=== PATIENT | female | born 1990 | race Hispanic/Latino ===

== ENCOUNTER 2023-02-20 12:27 | Emergency (ER) | payer OTHER ==
[~2023-02-20] VITALS: Ht 154.9 cm; Wt 79.4 kg
[2023-02-20] MEDS ORDERED: KETOROLAC 30MG VIAL (30MG/ML) IVP ONE (14:30)
[2023-02-20 14:38] LABS: BASOPHILS # (AUTO) 0.03 K/uL (0.00-0.20); BASOPHILS % (AUTO) 0.4 % (0.0-5.0); EOSINOPHILS # (AUTO) 0.15 K/uL (0.00-0.70); HEMATOCRIT 39.1 % (36-48); IMMATURE GRANULOCYTE ABSOLUTE 0.04 K/uL (0-1); LYMPHOCYTES # (AUTO) 2.8 K/uL (1.0-4.8); LYMPHOCYTES % (AUTO) 37.9 % (21.0-51.0); MEAN CORPUSCULAR HEMOGLOBIN 29.6 pg (27.0-33.0); MEAN CORPUSCULAR VOLUME 84.4 fL (79-99); MONOCYTES # (AUTO) 0.4 K/uL (0.1-1.0); MONOCYTES % (AUTO) 4.7 % (3.0-13.0); NEUTROPHILS % (AUTO) 54.5 % (40.0-77.0); PLATELET COUNT (AUTO) 192 K/uL (130-400); RED BLOOD CELL COUNT(AUTO) 4.63 MIL/uL (4.00-5.50); RED CELL DISTRIBUTION WIDTH 11.9 % (11.0-15.5); WHITE BLOOD COUNT (AUTO) 7.4 K/uL (4.8-10.8)
[2023-02-20 14:46] LABS: CREATININE 0.6 mg/dL (0.5-1.5); POTASSIUM 3.8 mmol/L (3.5-5.1)
[2023-02-20 14:50] LABS: ALBUMIN 3.7 g/dL (3.5-5.0); TOTAL PROTEIN, SERUM 8.5 g/dL (6.0-8.3)
[2023-02-20] MEDS ORDERED: IBUP-2077 PO (16:36)
[2023-02-20 16:55] VITALS: BP 105/70; PULSE 76; RESP 18; O2SAT 98
== END 2023-02-20 17:02 | disposition home or self-care (01) ==
LOC: EDH 12:27
DX: R59.0 Localized enlarged lymph nodes (principal); Z98.890 Other specified postprocedural states
CPT/HCPCS: 99285; 96374; 80053; 85025; 87880; 36415; 76536; J1885

== ENCOUNTER 2025-03-14 12:28 | Emergency (ER) | payer BC ==
[~2025-03-14] VITALS: Ht 154.9 cm; Wt 64.9 kg
[~2025-03-14 12:28] MED LIST: IBUP-2077 PO
[2025-03-14 13:15] LABS: IMMATURE GRANULOCYTE ABSOLUTE 0.02 K/uL (0-1); NUCLEATED RED BLOOD CELLS 0.0 % (0.0-0.19); PLATELET COUNT (AUTO) 174 K/uL (130-400); RED BLOOD CELL COUNT(AUTO) 4.68 MIL/uL (4.00-5.50); RED CELL DISTRIBUTION WIDTH 12.0 % (11.0-15.5); WHITE BLOOD COUNT (AUTO) 5.3 K/uL (4.8-10.8)
[2025-03-14 13:27] LABS: CREATININE 0.7 mg/dL (0.5-1.0); GLOMERULAR FILTR. RATE CALC 116.0 mL/min (>90); GLUCOSE,RANDOM 111.0 mg/dL (70-105); SODIUM SERUM 140.0 mmol/L (136-145); UREA NITROGEN, BLOOD 9.0 mg/dL (7-18)
[2025-03-14 13:32] LABS: ASPARTATE AMINOTRANSFERASE 13.0 U/L (10-37); TOTAL PROTEIN, SERUM 7.6 g/dL (6.0-8.3)
[2025-03-14] MEDS ORDERED: LIDOCAINE HCL 2% VISCOUS 15 ML UDCUP ONE (13:49)
[2025-03-14] MEDS ORDERED: MAG/ALUM/SIMETH 30 ML UDCUP ONE (13:49)
[2025-03-14] MEDS: MAG/ALUM/SIMETH 30 ML UDCUP PO ONE (13:50)
[2025-03-14] MEDS: DICYCLOMINE HCL 10 MG/5 ML ML PO ONE (13:50)
[2025-03-14] MEDS: LIDOCAINE HCL 2% VISCOUS 15 ML UDCUP PO ONE (13:50)
[2025-03-14] MEDS ORDERED: DICYCLOMINE HCL 10 MG/5 ML ML PO ONE (13:50)
[2025-03-14 13:54] VITALS: BP 116/74; PULSE 82; RESP 16; TEMP 98.6; O2SAT 98
--- NOTE | 2025-03-14 14:43 | ERN ---
General Chief Complaint: Abdominal Pain Stated Complaint: ABDOMINAL PAIN, BACK PAIN Time Seen by MD: 12:30 Time Seen by Midlevel: 12:30 Source: patient History of Present Illness Initial Comments Patient is a 34-year-old female presenting to the emergency department for evaluation of midepigastric abdominal pain that started last night. She does report being on 12.5 mg. Previously on 10 mg but increase your dose the proximally three weeks ago he believes this may be a side effect medication. Allergies: Coded Allergies: No Known Allergies (Unverified Allergy, Unknown, 02/20/23) Home Meds Active Scripts Ibuprofen (Ibuprofen 800 mg Tab) 800 Mg Tab, 800 MG PO Q6H PRN for PAIN, #30 TAB Prov:J CARLOS FALK 02/20/23 Past Medical History Past Medical History: No Pertinent History Past Surgical History: Other, Surgical History Other: TUMMY TUCK, BREAST AUGMENTATION ROS Dictation CONSTITUTIONAL: Negative except for HPI HEAD/FACE: Negative except for HPI EENT: Negative except for HPI RESPIRATORY: Negative except for HPI GASTROINTESTINAL/ABDOMINAL: Negative except for HPI GENITOURINARY: Negative except for HPI MUSCULOSKELETAL: Negative except for HPI INTEGUMENTARY: Negative except for HPI NEUROLOGICAL/PSYCH: Negative except for HPI HEMATOLOGIC/LYMPHATIC: Negative except for HPI All Systems Negative, Except as noted above. 13 point review of systems assessed and all negative except for above. Physical Exam Physical Exam Dictation Vital Signs reviewed General Appearance: Alert, oriented x 3, no acute distress, well developed, nourished. Head and Face: non-traumatic. Eyes: PERRL, pink conjunctivas, eyelid no trauma, anterior chamber with arcus senilis. Ears: Pinnas intact and no signs of trauma or erythema ear canals clear and no discharge TM no erythema Nose: No discharge, no bleeding. Oropharynx: Mouth normal, tongue pink, pharynx clear,no erythema, tonsils no exudates, no abscesses noted, mucous membrane moist Neck: Supple, non-tender, no thyromegaly, no masses, no JVD, no bruits Breast:Deferred Chest:No tenderness, no crepitus, no paradoxical movement, no retractions Lungs:Clear, well-ventilated, symmetric, no rales, no wheezing, no rhonchi, no stridor, good breath sounds bilaterally Heart: Regular rate, regular rhythm, no murmur, no gallops Vascular: no peripheral edema, Abdomen: Soft, positive bowel sounds, nondistended, no guarding, nontender, no rebound, no masses no hepatomegaly, no splenomegaly, no Chang's sign, no hernias. Rectal: Deferred Genital: Deferred Neurological: Normal speech, motor function intact, sensory function intact Musculoskeletal: Neck nontender, full range of motion, back nontender, full range of motion, Extremities: nontender, full range of motion Skin: Color pink, dry, no turgor, no rash, no lacerations, no abrasions, no contusions. Lymphatic: Deferred Results Laboratory and Microbiology Lab and Micro Result Laboratory Tests Test 03/14/25 13:09 White Blood Count 5.3 K/uL (4.8-10.8) Red Blood Count 4.68 MIL/uL (4.00-5.50) Hemoglobin 13.9 g/dL (12.0-16.0) Hematocrit 39.9 % (36-48) Mean Corpuscular Volume 85.3 fL (79-99) Mean Corpuscular Hemoglobin 29.7 pg (27.0-33.0) Mean Corpuscular Hemoglobin Concent 34.8 g/dL (32.0-36.0) Red Cell Distribution Width 12.0 % (11.0-15.5) Platelet Count 174 K/uL (130-400) Mean Platelet Volume 10.7 fL (7.5-10.5) H Immature Granulocyte % (Auto) 0.4 % (0-1) Neutrophils (%) (Auto) 52.2 % (40.0-77.0) Lymphocytes (%) (Auto) 40.1 % (21.0-51.0) Monocytes (%) (Auto) 4.3 % (3.0-13.0) Eosinophils (%) (Auto) 2.6 % (0.0-8.0) Basophils (%) (Auto) 0.4 % (0.0-5.0) Neutrophils # (Auto) 2.8 K/uL (1.8-7.7) Lymphocytes # (Auto) 2.1 K/uL (1.0-4.8) Monocytes # (Auto) 0.2 K/uL (0.1-1.0) Eosinophils # (Auto) 0.14 K/uL (0.00-0.70) Basophils # (Auto) 0.02 K/uL (0.00-0.20) Absolute Immature Granulocyte (auto 0.02 K/uL (0-1) Nucleated Red Blood Cells 0.0 % (0.0-0.19) Sodium Level 140 mmol/L (136-145) Potassium Level 3.6 mmol/L (3.5-5.1) Chloride Level 104 mmol/L (101-111) Carbon Dioxide Level 31 mmol/L (21-32) Blood Urea Nitrogen 9 mg/dL (7-18) Creatinine 0.7 mg/dL (0.5-1.0) Glomerular Filtration Rate Calc 116 mL/min (>90) Random Glucose 111 mg/dL (70-105) H Total Calcium 8.8 mg/dL (8.5-10.1) Total Bilirubin 1.0 mg/dL (0.2-1.0) Aspartate Amino Transf (AST/SGOT) 13 U/L (10-37) Alanine Aminotransferase (ALT/SGPT) 16 U/L (12-78) Alkaline Phosphatase 53 U/L (50-136) Troponin I High Sensitivity < 4 ng/L (4-50) L Total Protein 7.6 g/dL (6.0-8.3) Albumin 3.9 g/dL (3.5-5.0) Lipase 35 U/L (16-77) Serum Test, Qualitative NEGATIVE (NEGATIVE) Labs Reviewed?: Yes MDM MDM: Differential diagnosis: There are no social concerns with this patient. Prescription drug management Prescriptions will include: Medical management and examination interpretation discussions were had by me with other qualified healthcare professionals as indicated for the patient's care. ED Course Orders Procedure Category Date Status Time Cbc With Differential LAB 03/14/25 Complete 12:49 Comprehensive LAB 03/14/25 Complete Metabolic Panel 12:49 Lipase LAB 03/14/25 Complete 12:49 12 Lead Ekg Tracing- EKG 03/14/25 Logged Technical 12:49 Troponin I High LAB 03/14/25 Complete Sensitivity 12:49 Lidocaine Hcl 2% PHA 03/14/25 Complete Viscous (Lidocaine Hcl 13:00 Mag/Alum/Simeth 30ml PHA 03/14/25 Complete (Maalox Plus 30ml) 13:00 Dicyclomine Hcl PHA 03/14/25 Complete (Bentyl 10mg/5ml 13:00 Testing, LAB 03/14/25 Complete Serum Hcg 12:50 Current Medications Medications (Trade) Dose Ordered Sig/Sudheer Route PRN Reason Start Time Stop Time Status Last Admin Dose Admin Al Hydroxide/Mg Hydroxide (MAALox PLUS 30ML) 30 ml ONCE ONCE PO 03/14/25 13:00 03/14/25 13:01 DC 03/14/25 13:50 Dicyclomine HCl (Bentyl 10mg/5ml Syrup) 10 mg ONCE ONCE PO 03/14/25 13:00 03/14/25 13:01 DC 03/14/25 13:50 Lidocaine HCl (Lidocaine HCl 2% Viscous) 10 ml ONCE ONCE PO 03/14/25 13:00 03/14/25 13:01 DC 03/14/25 13:50 Vital Signs Date Time Temp Pulse Resp B/P (MAP) Pulse Ox O2 Delivery O2 Flow Rate FiO2 03/14/25 13:54 98.6 82 16 116/74 98 Room Air* 0 21 03/14/25 12:29 98.4 83 16 112/76 96 Room Air DX & DISP Disposition: Discharge Departure Impression: Primary Impression: Epigastric abdominal pain Additional Impression: Medication side effect Condition: Stable Scripts Famotidine (Pepcid) 20 Mg Tablet 1 TAB PO BID for 30 Days, #60 TAB 0 Refills Prov: AMISHA GARCIA 03/14/25 Ondansetron (Ondansetron Odt) 4 Mg Tab.rapdis 4 MG PO BID for 7 Days, #14 TAB Prov: AMISHA GARCIA 03/14/25 Additional Instructions: Your blood work today is unremarkable. There is no evidence of pancreatitis at this time. Your electrolytes are within normal ranges. Your liver function tests are normal. Your symptoms may be related to the Mounjaro you are taking. Please follow up with your primary care doctor in 2-3 days for repeat evaluation. I have given you a prescription for Zofran and Pepcid which should help with your abdominal discomfort. Referrals: SELF,REFERRAL (PCP) Time of Disposition: 14:49 I have reviewed the case, and I agree with, Diagnosis and Plan I performed the substantive portion of the visit. I have reviewed and personally made and approve the management plan that is documented in the note by myself or the TOMAS. I acknowledge for responsibility for the patient's management plan. AMISHA GARCIA Mar 14, 2025 14:43
[2025-03-14] MEDS ORDERED: FAMO-136 PO (14:50)
[2025-03-14] MEDS ORDERED: ONDA-243 PO (14:50)
--- NOTE | 2025-03-16 14:48 | EKG ---
[facility] Test Date: 2025-03-14 Test Time: 12:57:18 Pat Name: LUPE GUTIÉRREZ Department: [facility] Room: Gender: F Systems Project Manager: [birth year] : 1990 Requested By: AMISHA GARCIA Order Number: [id number] Reading MD: Shravan Saleem Measurements Intervals [place] Rate: 78 P: 60 MO: 163 QRS: 64 QRSD: 99 T: 18 QT: 380 QTc: 432 Interpretive Statements Sinus rhythm No previous ECG available for comparison Electronically Signed On 03-16-2025 16:37:20 CDT by Shravan Saleem Please click the below link to view image of tracing.
== END 2025-03-14 14:59 | disposition home or self-care (01) ==
LOC: EDH 12:28
DX: R10.13 Epigastric pain (principal); T50.905A Adverse effect of unspecified drugs, medicaments and biological substances, initial encounter; Y92.89 Other specified places as the place of occurrence of the external cause
CPT/HCPCS: 36415; 80053; 83690; 84484; 84703; 85025; 93005; 99284